=== PATIENT | male | born 1980 | race Two or more races ===

== ENCOUNTER 2018-07-12 03:41 | Emergency (ER) | payer OTHER, MEDICAID ==
[~2018-07-12] VITALS: Ht 175.3 cm; Wt 82.0 kg
[2018-07-12] MEDS ORDERED: KETOROLAC 30MG/ML VIAL IM ONE (05:30)
[2018-07-12] MEDS ORDERED: ACETAMINOPHEN 325MG TABLET PO ONE (05:30)
[2018-07-12 09:00] VITALS: BP 134/90
[2018-07-12] MEDS ORDERED: BACITRACIN ZINC OINT UDPKT TOP ONE (09:00)
== END 2018-07-12 09:15 | disposition home or self-care (01) ==
LOC: ER 03:41
DX: S51.851A Open bite of right forearm, initial encounter (principal); S61.531A Puncture wound without foreign body of right wrist, initial encounter; J45.909 Unspecified asthma, uncomplicated; F17.200 Nicotine dependence, unspecified, uncomplicated; W54.0XXA Bitten by dog, initial encounter; Y93.89 Activity, other specified; Y92.89 Other specified places as the place of occurrence of the external cause; Y99.8 Other external cause status
CPT/HCPCS: 73130; 96372; 99283; J1885